=== PATIENT | female | born 1980 | race Asian ===

== ENCOUNTER 2016-08-10 09:02 | Inpatient (IN) | payer SELFPAY ==
[2016-08-07 13:55] LABS: BILIRUBIN,URINE NEGATIVE (NEGATIVE); BLOOD, URINE NEGATIVE (NEGATIVE); CLARITY/URINE CLEAR (CLEAR); COLOR,URINE YELLOW (YELLOW); GLUCOSE,URINE NEGATIVE (NEGATIVE); KETONES,URINE NEGATIVE (NEGATIVE); LEUKOCYTE ESTERASE ,URINE 1+ (NEGATIVE); NITRITE, URINE NEGATIVE (NEGATIVE); PROTEIN URINE NEGATIVE (NEGATIVE); UROBILINOGEN,URINE 0.2 (0.2-1.0)
[2016-08-07 14:20] LABS: BACTERIA,URINE FEW /HPF (None Seen); MUCUS,URINE None Seen /LPF (None Seen); RBC,URINE 0-3 /HPF (0-3)
[2016-08-07 14:24] LABS: BASOPHILS % (AUTO) 0.8 % (0.0-2.0); EOSINOPHILS # (AUTO) 0.1 K/uL (0.0-0.4); EOSINOPHILS % (AUTO) 0.9 % (0.0-4.0); HEMATOCRIT 34.3 % (36-48); HEMOGLOBIN 11.3 g/dL (12.0-16.0); LYMPHOCYTES # (AUTO) 1.4 K/uL (1.0-5.5); LYMPHOCYTES % (AUTO) 23.6 % (20.5-51.5); MEAN CORPUSCULAR HEMOGLOBIN 25 pg (27-31); MEAN CORPUSCULAR HGB CONC 33 % (32-36); MEAN CORPUSCULAR VOLUME 77 fL (79.0-98.0); MONOCYTES # (AUTO) 0.4 K/uL (0.0-1.0); NEUTROPHILS % (AUTO) 67.7 % (40.0-70.0); PLATELET COUNT (AUTO) 247 K/uL (130-430); RED BLOOD CELL COUNT(AUTO) 4.44 MIL/uL (4.2-6.2); RED CELL DISTRIBUTION WIDTH 14.5 % (9.0-15.0); WHITE BLOOD COUNT (AUTO) 5.9 K/uL (4.8-10.8)
[~2016-08-10] VITALS: Ht 167 cm; Wt 94.3 kg
[2016-08-10] MEDS ORDERED: LR 1,000 ML IV ONE (09:08)
[2016-08-10] MEDS ORDERED: CITRIC ACID/SODIUM CITRATE 30 ML UDC PO ONE (09:15)
[2016-08-10 09:25] LABS: BASOPHILS % (AUTO) 0.5 % (0.0-2.0); EOSINOPHILS # (AUTO) 0.1 K/uL (0.0-0.4); EOSINOPHILS % (AUTO) 1.3 % (0.0-4.0); HEMATOCRIT 33.5 % (36-48); HEMOGLOBIN 10.7 g/dL (12.0-16.0); LYMPHOCYTES # (AUTO) 1.6 K/uL (1.0-5.5); LYMPHOCYTES % (AUTO) 28.8 % (20.5-51.5); MEAN CORPUSCULAR HEMOGLOBIN 25 pg (27-31); MEAN CORPUSCULAR HGB CONC 32 % (32-36); MEAN CORPUSCULAR VOLUME 78 fL (79.0-98.0); MONOCYTES # (AUTO) 0.4 K/uL (0.0-1.0); NEUTROPHILS # (AUTO) 3.5 K/uL (1.8-7.7); NEUTROPHILS % (AUTO) 62.4 % (40.0-70.0); PLATELET COUNT (AUTO) 241 K/uL (130-430); RED BLOOD CELL COUNT(AUTO) 4.32 MIL/uL (4.2-6.2); RED CELL DISTRIBUTION WIDTH 14.8 % (9.0-15.0); WHITE BLOOD COUNT (AUTO) 5.6 K/uL (4.8-10.8)
[2016-08-10] MEDS ORDERED: CEFAZOLIN 2 GM IVPB PREMIX 50 ML IV ONE (10:00)
[2016-08-10 11:37] VITALS: BP 110/68; PULSE 87; RESP 16; TEMP 98.4
[2016-08-10] MEDS ORDERED: NS IRRIG SOLN 1000 ML IR ONE (12:45)
[2016-08-10] MEDS ORDERED: OXYTOCIN 10 UNIT/ML VIAL IV ONE (12:45)
[2016-08-10] MEDS ORDERED: MORPHINE SULFATE 10MG/10ML PF AMP EP ONE (12:45)
[2016-08-10] MEDS ORDERED: METHYLERGONOVINE MALEATE 0.2 MG/ML AMP IM ONE (12:45)
[2016-08-10] MEDS ORDERED: ePHEDrine sulfate 50 MG/ML VIAL IV ONE (12:45)
[2016-08-10] MEDS ORDERED: LR 1,000 ML IV.SOLN IV ONE (12:45)
[2016-08-10] MEDS ORDERED: MIDAZOLAM HCL 5 MG/5 ML VIAL IVP ONE (12:45)
[2016-08-10] MEDS ORDERED: LR 1,000 ML IV SCH (14:04)
[2016-08-10] MEDS ORDERED: OXYTOCIN/NORMAL SALINE 1,000 ML IV ONE (14:05)
[2016-08-10 14:15] VITALS: BP 123/76
[2016-08-10] MEDS ORDERED: KETOROLAC TROMETHAMINE 60 MG/2 ML VIAL IM PRN (14:15)
[2016-08-10] MEDS ORDERED: MEPERIDINE HCL/PF 25 MG/ML DISP.SYRIN IVP PRN (14:15)
[2016-08-10] MEDS ORDERED: MORPHINE SULFATE 10MG/10ML PF AMP SP SCH (14:15)
[2016-08-10] MEDS ORDERED: MEASLES,MUMPS&RUBELLA VACC/PF 12500 UNIT/0.5 ML VIAL SUBQ PRN (14:15)
[2016-08-10] MEDS ORDERED: DIPHENHYDRAMINE INJ 50 MG/ML VIAL IM PRN (14:15)
[2016-08-10] MEDS ORDERED: HYDROcodone/ACETAMIN 5-325 MG TAB (NORCO/ VICODIN) PO PRN (14:15)
[2016-08-10] MEDS ORDERED: SIMETHICONE 80 MG TAB.CHEW PO PRN (14:15)
[2016-08-10] MEDS ORDERED: MEPERIDINE HCL/PF 50 MG/ML AMP IVP PRN ×2 (14:15)
[2016-08-10] MEDS ORDERED: NALOXONE HCL 0.4 MG/ML AMP (NARCAN) IVP PRN (14:15)
[2016-08-10] MEDS ORDERED: ANUSOL 1 EA SUPP.RECT (PREPARATION H) RC PRN (14:15)
[2016-08-10] MEDS ORDERED: LANOLIN 7 GM OINT. TP PRN (14:15)
[2016-08-10] MEDS ORDERED: ONDANSETRON HCL 4 MG/2 ML VIAL IVP PRN ×2 (14:15)
[2016-08-10] MEDS: CEFAZOLIN 1 GM IVPB PREMIX 50 ML IV SCH (17:58)
[2016-08-10] MEDS ORDERED: TEMAZEPAM 15 MG CAPSULE PO PRN (21:00)
[2016-08-11] MEDS: CEFAZOLIN 1 GM IVPB PREMIX 50 ML IV SCH ×2 (06:04)
[2016-08-11] MEDS: IBUPROFEN 600 MG TABLET PO SCH ×4 (06:04→23:37)
[2016-08-11 09:33] LABS: BASOPHILS % (AUTO) 0.4 % (0.0-2.0); EOSINOPHILS % (AUTO) 0.4 % (0.0-4.0); HEMATOCRIT 29.8 % (36-48); HEMOGLOBIN 9.6 g/dL (12.0-16.0); LYMPHOCYTES # (AUTO) 1.2 K/uL (1.0-5.5); LYMPHOCYTES % (AUTO) 14.9 % (20.5-51.5); MEAN CORPUSCULAR HEMOGLOBIN 25 pg (27-31); MEAN CORPUSCULAR HGB CONC 32 % (32-36); MEAN CORPUSCULAR VOLUME 77 fL (79.0-98.0); MONOCYTES # (AUTO) 0.4 K/uL (0.0-1.0); MONOCYTES % (AUTO) 5.3 % (1.7-9.3); NEUTROPHILS # (AUTO) 6.4 K/uL (1.8-7.7); PLATELET COUNT (AUTO) 186 K/uL (130-430); RED BLOOD CELL COUNT(AUTO) 3.86 MIL/uL (4.2-6.2); RED CELL DISTRIBUTION WIDTH 14.8 % (9.0-15.0)
[2016-08-11] MEDS: DOCUSATE SODIUM 100 MG CAPSULE PO PRN (21:51)
[2016-08-11] MEDS: OXYCODONE/ACETAMINOPHEN 5-325 TABLET PO PRN (23:59)
[2016-08-12] MEDS: IBUPROFEN 600 MG TABLET PO SCH ×4 (06:14→23:35)
[2016-08-12] MEDS: DOCUSATE SODIUM 100 MG CAPSULE PO PRN (16:09)
[2016-08-12] MEDS: OXYCODONE/ACETAMINOPHEN 5-325 TABLET PO PRN (20:30)
[2016-08-13] MEDS: IBUPROFEN 600 MG TABLET PO SCH ×2 (05:04→12:00)
[2016-08-13] MEDS: OXYCODONE/ACETAMINOPHEN 5-325 TABLET PO PRN ×3 (11:17→14:54)
[2016-08-13] MEDS: DOCUSATE SODIUM 100 MG CAPSULE PO PRN (15:32)
== END 2016-08-13 15:40 | disposition home or self-care (01) | DRG 765 ==
LOC: SPU 09:02
PROVIDERS: ADMIT Obstetrics & Gynecology; ATTEND Obstetrics & Gynecology
PROC: 0UB70ZZ Excision of Bilateral Fallopian Tubes, Open Approach (ICD-10-PCS; 2016-08-10)
PROC: 10D00Z1 Extraction of Products of Conception, Low, Open Approach (ICD-10-PCS; principal; 2016-08-10 12:30)
DX: O34.219 Maternal care for unspecified type scar from previous cesarean delivery (principal); O30.003 Twin pregnancy, unspecified number of placenta and unspecified number of amniotic sacs, third trimester; O32.1XX1 Maternal care for breech presentation, fetus 1; Z37.2 Twins, both liveborn; Z3A.38 38 weeks gestation of pregnancy; Z30.2 Encounter for sterilization
CPT/HCPCS: 36415; 81000-TC; 85025; 86886; 86900; 86901; 88302; 94760; A4618; J0690; J1200; J2210; J2250; J2274; J2590; J7120